=== PATIENT | female | born 1985 | race Hispanic/Latino ===

== ENCOUNTER → 2017-06-26 | Outpatient (REF) | payer OTHER ==
[2017-06-26 16:16] LABS: HEMATOCRIT 39.2 % (36.0-47.0); HEMOGLOBIN 12.9 g/dl (12.0-15.5); MEAN CORPUSCULAR HEMOGLOBIN 28.6 pg (27.0-33.0); MEAN CORPUSCULAR HGB CONC 32.9 g/dl (32.0-36.5); MEAN CORPUSCULAR VOLUME 86.9 fl (80.0-96.0); PLATELET COUNT, AUTOMATED 281 10^3/uL (150-450); RED BLOOD COUNT 4.51 10^6/uL (4.00-5.40); RED CELL DISTRIBUTION WIDTH 12.4 % (11.5-14.5); WHITE BLOOD COUNT 12.1 10^3/uL (4.0-10.0)
[2017-06-26 16:39] LABS: ALBUMIN 3.3 GM/DL (3.2-5.2); ALBUMIN/GLOBULIN RATIO 0.83 (1.00-1.93); ALKALINE PHOSPHATASE 81 U/L (45-117); ALT/SGPT 20 U/L (12-78); ANION GAP 6 MEQ/L (8-16); AST/SGOT 13 U/L (7-37); BILIRUBIN,TOTAL 0.1 MG/DL (0.2-1.0); BLOOD UREA NITROGEN 9 MG/DL (7-18); CALCIUM LEVEL 8.9 MG/DL (8.5-10.1); CARBON DIOXIDE LEVEL 26 MEQ/L (21-32); CHLORIDE LEVEL 108 MEQ/L (98-107); CHOLESTEROL LEVEL 177 MG/DL (<200); CHOLESTEROL RISK RATIO 3.051 (<5); CREATININE FOR GFR 0.75 MG/DL (0.55-1.30); FREE T4 1.32 NG/DL (0.76-1.46); GLOMERULAR FILTRATION RATE > 60.0 (>60); GLUCOSE, FASTING 84 MG/DL (70-100); HDL CHOLESTEROL 58 MG/DL (>40); LDL CHOLESTEROL 83.2 MG/DL (<100); NON-HDL-C 119 MG/DL; POTASSIUM SERUM 4.4 MEQ/L (3.5-5.1); SODIUM LEVEL 140 MEQ/L (136-145); THYROID STIMULATING HORMONE 0.956 uIU/ML (0.358-3.740); TOTAL PROTEIN 7.3 GM/DL (6.4-8.2); TRIGLYCERIDES LEVEL 179 MG/DL (<150)
[2017-06-26 17:44] LABS: ESTIMATED AVERAGE GLUCOSE 114 MG/DL (60-110); HEMOGLOBIN A1c 5.6 %
== END ==
LOC: M SFHCPLAZ 14:01
DX: E03.9 Hypothyroidism, unspecified (principal); K21.9 Gastro-esophageal reflux disease without esophagitis; E28.2 Polycystic ovarian syndrome

== ENCOUNTER 2017-08-30 19:55 | Emergency (ER) | payer OTHER ==
[2017-08-30] MEDS: LABETALOL 100 MG TAB PO (20:29)
[2017-08-30] MEDS ORDERED: IBUPROFEN 600 MG TAB PO (21:00)
== END 2017-08-30 21:34 | disposition home or self-care (01) ==
LOC: M ED 19:55
DX: S96.912A Strain of unspecified muscle and tendon at ankle and foot level, left foot, initial encounter (principal); X50.1XXA Overexertion from prolonged static or awkward postures, initial encounter; Y92.410 Unspecified street and highway as the place of occurrence of the external cause; E11.9 Type 2 diabetes mellitus without complications; E07.9 Disorder of thyroid, unspecified; K21.9 Gastro-esophageal reflux disease without esophagitis; Z79.899 Other long term (current) drug therapy; Z79.84 Long term (current) use of oral hypoglycemic drugs
CPT/HCPCS: 73630

== ENCOUNTER → 2017-09-23 | Outpatient (REF) | payer OTHER ==
[2017-09-23 16:41] LABS: FREE T4 1.56 NG/DL (0.76-1.46); THYROID STIMULATING HORMONE 0.011 uIU/ML (0.358-3.740)
== END ==
LOC: M SFHCPLAZ 13:17
DX: E03.9 Hypothyroidism, unspecified (principal)

== ENCOUNTER → 2017-10-25 | Outpatient (REF) | payer OTHER | LOC: M SFHCLERA 13:36 | DX: J02.9 Acute pharyngitis, unspecified (principal) ==

== ENCOUNTER → 2018-05-10 | Outpatient (REF) | payer OTHER ==
[~2018-05-10] MED LIST: IBUP-1022 PO; LEVO200T4; METF500T13; MICR1TAB18; OMEP20CA3
== END ==
LOC: M SFHCLERA 17:23
PROVIDERS: ATTEND Physician Assistant
DX: N39.0 Urinary tract infection, site not specified (principal)

== ENCOUNTER 2018-05-19 20:08 | Emergency (ER) | payer OTHER ==
[~2018-05-19] VITALS: Ht 175.3 cm; Wt 131.8 kg
[2018-05-19] MEDS ORDERED: LABE200T32 PO (20:20)
[2018-05-19 21:34] VITALS: BP 160/104
== END 2018-05-20 01:21 | disposition left against medical advice (07) ==
LOC: M ED 20:08
DX: Z53.21 Procedure and treatment not carried out due to patient leaving prior to being seen by health care provider (principal)

== ENCOUNTER → 2018-05-27 | Outpatient (REF) | payer OTHER ==
[~2018-05-27] MED LIST changes: +LABE200T32 PO; +NORC1TAB7 PO
== END ==
LOC: M SFHCPLAZ 11:07
PROVIDERS: ATTEND Family Medicine
DX: R10.30 Lower abdominal pain, unspecified (principal)
CPT/HCPCS: 36415; 84443; G0463

== ENCOUNTER 2018-06-13 08:04 | Emergency (ER) | payer OTHER ==
[~2018-06-13] VITALS: Ht 175.3 cm; Wt 130.6 kg
[~2018-06-13 08:04] MED LIST changes: -NORC1TAB7 PO
[2018-06-13] MEDS ORDERED: MORPHINE 4 MG/ML 1ML VIAL/SYRINGE (J2270) IV ONE (08:45)
[2018-06-13] MEDS ORDERED: ONDANSETRON 4MG/2ML VIAL (J2405) IV ONE (08:45)
[2018-06-13] MEDS ORDERED: NS 1,000 ML IV ONE (08:45)
[2018-06-13 09:07] LABS: BASO # 0.1 10^3/uL (0.0-0.2); BASO % 0.3 % (0.0-1.0); EOS # 0.2 10^3/uL (0.0-0.50); EOS % 1.3 % (0.0-3.0); HEMATOCRIT 41.1 % (36.0-47.0); HEMOGLOBIN 13.5 g/dl (12.0-15.5); LYMPH % 13.3 % (24.0-44.0); MEAN CORPUSCULAR HEMOGLOBIN 29.1 pg (27.0-33.0); MEAN CORPUSCULAR HGB CONC 32.8 g/dl (32.0-36.5); MEAN CORPUSCULAR VOLUME 88.6 fl (80.0-96.0); MONO # 0.6 10^3/uL (0.0-0.8); MONO % 3.9 % (0.0-5.0); NEUTROPHILS # 12.1 10^3/uL (1.8-7.7); NEUTROPHILS % 80.8 % (36.0-66.0); PLATELET COUNT, AUTOMATED 296 10^3/uL (150-450); RED BLOOD COUNT 4.64 10^6/uL (4.00-5.40)
[2018-06-13 09:25] LABS: BLOOD UREA NITROGEN 9 MG/DL (7-18); CALCIUM LEVEL 8.5 MG/DL (8.5-10.1); CARBON DIOXIDE LEVEL 26 MEQ/L (21-32); CHLORIDE LEVEL 108 MEQ/L (98-107); CREATININE FOR GFR 0.85 MG/DL (0.55-1.30); GLOMERULAR FILTRATION RATE > 60.0 (>60); GLUCOSE, FASTING 101 MG/DL (70-100); POTASSIUM SERUM 4.1 MEQ/L (3.5-5.1); SODIUM LEVEL 139 MEQ/L (136-145)
[2018-06-13] MEDS ORDERED: NORC1TAB7 PO (11:02)
[2018-06-13 11:15] VITALS: BP 120/71
--- NOTE | 2018-06-13 12:03 | REP ---
PELVIC ULTRASOUND: Real-time sonographic evaluation of the pelvis performed utilizing transabdominal and endovaginal technique. Urinary bladder is essentially collapsed. The uterus measures 9.7 x 4.2 x 4.9 cm. Endometrial thickness is 6 mm. Tiny amount of fluid is seen in the endometrial cavity. Tiny endometrial calcification is also seen. Right ovary measures 2.7 x 1.5 x 2.3 cm. Left ovary measures 3.2 x 2.1 x 3.2 cm. A dominant follicle in the left ovary has a maximum diameter of 1.9 cm. There is no ovarian torsion bilaterally, RI right ovary 0.53 and left ovary 0.60 with duplex Doppler evaluation. There is no other evidence of adnexal mass or free fluid. IMPRESSION: Dominant follicle left ovary 1.9 cm in maximum diameter. No torsion. No free fluid. Electronically Signed by Galen Worley MD 06/13/2018 03:46 P
== END 2018-06-13 11:39 | disposition home or self-care (01) ==
LOC: M ED 08:04
DX: N83.292 Other ovarian cyst, left side (principal); K21.9 Gastro-esophageal reflux disease without esophagitis; E28.2 Polycystic ovarian syndrome; Z72.0 Tobacco use; Z79.899 Other long term (current) drug therapy
CPT/HCPCS: 36415; 76830; 76856; 80048; 81001; 85025; 93976; 96361; 96374; 96375; 99284; J2270; J2405

== ENCOUNTER → 2018-07-10 | Outpatient (REF) | payer OTHER ==
[~2018-07-10] MED LIST changes: +NORC1TAB7 PO
[2018-07-10 21:53] LABS: CHLAMYDIA DNA AMPLIFICATION NEGATIVE (NEGATIVE); GC DNA AMPLIFICATION NEGATIVE (NEGATIVE)
== END ==
LOC: M SFHCLERA 11:01
PROVIDERS: ATTEND Nurse Practitioner Family
DX: R30.0 Dysuria (principal)
CPT/HCPCS: 81002; 81025; 87088; 87186; 87661; G0463

== ENCOUNTER → 2018-07-23 | Outpatient (REF) | payer OTHER ==
[2018-07-23 16:34] LABS: FREE T4 1.27 NG/DL (0.76-1.46); THYROID STIMULATING HORMONE 4.26 uIU/ML (0.358-3.740)
== END ==
LOC: M SFHCPLAZ 13:26
DX: E03.9 Hypothyroidism, unspecified (principal); R63.5 Abnormal weight gain
CPT/HCPCS: 36415; 84439; 84443; G0463

== ENCOUNTER → 2018-08-24 | Outpatient (CLI) | payer OTHER ==
[~2018-08-24] MED LIST changes: +OMEP1CAP73; -OMEP20CA3
== END ==
LOC: M SMT 10:53
PROVIDERS: ATTEND Specialist
DX: I10 Essential (primary) hypertension (principal)

== ENCOUNTER → 2018-10-10 | Outpatient (CLI) | payer OTHER ==
[~2018-10-10] MED LIST changes: -OMEP1CAP73; +OMEP20CA4
--- NOTE | 2018-10-10 17:35 | REP ---
Clinical: Trauma Technique: AP, lateral, bilateral oblique views of the right ankle. Findings: Significant lateral swelling is appreciated with small avulsion fracture fragments of the distal fibular tip. Correlation with mechanism of injury is recommended. No other fracture or dislocation identified. Ankle mortise appears intact. Impression: Lateral swelling with small avulsion fracture of the distal fibular tip. Electronically Signed by Hitesh Page MD 10/10/2018 05:26 P
== END ==
LOC: M LRY 17:10
PROVIDERS: ATTEND Physician Assistant
DX: M25.471 Effusion, right ankle (principal)
CPT/HCPCS: 73610; J1885

== ENCOUNTER → 2018-11-27 | Outpatient (REF) | payer OTHER ==
[2018-11-27 15:53] LABS: HEMOGLOBIN A1c 5.6 %
[2018-11-27 16:07] LABS: BLOOD UREA NITROGEN 10 MG/DL (7-18); CALCIUM LEVEL 9.2 MG/DL (8.5-10.1); CARBON DIOXIDE LEVEL 27 MEQ/L (21-32); CHLORIDE LEVEL 103 MEQ/L (98-107); CHOLESTEROL LEVEL 219 MG/DL (<200); CHOLESTEROL RISK RATIO 3.084 (<5); CREATININE FOR GFR 0.75 MG/DL (0.55-1.30); FREE T4 1.18 NG/DL (0.76-1.46); GLOMERULAR FILTRATION RATE > 60.0 (>60); GLUCOSE, FASTING 88 MG/DL (70-100); HDL CHOLESTEROL 71 MG/DL (>40); LDL CHOLESTEROL 110 MG/DL (<100); NON-HDL-C 148 MG/DL; POTASSIUM SERUM 4.3 MEQ/L (3.5-5.1); SODIUM LEVEL 136 MEQ/L (136-145); TRIGLYCERIDES LEVEL 191 MG/DL (<150)
== END ==
LOC: M SFHCPLAZ 13:56
DX: Z00.00 Encounter for general adult medical examination without abnormal findings (principal); E28.2 Polycystic ovarian syndrome; I10 Essential (primary) hypertension; E03.9 Hypothyroidism, unspecified

== ENCOUNTER → 2019-01-29 | Outpatient (REF) | payer OTHER ==
[~2019-01-29] MED LIST changes: +OMEP-172; -OMEP20CA4
== END ==
LOC: M SFHCPLAZ 13:24
DX: Z32.00 Encounter for pregnancy test, result unknown (principal)
CPT/HCPCS: 36415; 84702; G0463

== ENCOUNTER → 2019-02-25 | Outpatient (CLI) | payer OTHER ==
[~2019-02-25] MED LIST changes: -OMEP-172; +OMEP1CAP73
[2019-02-25 13:25] LABS: BASO # 0.1 10^3/uL (0.0-0.2); BASO % 0.4 % (0.0-1.0); EOS # 0.2 10^3/uL (0.0-0.5); EOS % 1.7 % (0.0-3.0); HEMATOCRIT 37.1 % (36.0-47.0); HEMOGLOBIN 12.4 g/dl (12.0-15.5); LYMPH % 24.3 % (24.0-44.0); MEAN CORPUSCULAR HEMOGLOBIN 29.2 pg (27.0-33.0); MEAN CORPUSCULAR HGB CONC 33.4 g/dl (32.0-36.5); MEAN CORPUSCULAR VOLUME 87.3 fl (80.0-96.0); MONO # 0.7 10^3/uL (0.0-0.8); MONO % 5.5 % (0.0-5.0); NEUTROPHILS # 8.4 10^3/uL (1.5-8.5); NEUTROPHILS % 67.7 % (36.0-66.0); PLATELET COUNT, AUTOMATED 300 10^3/uL (150-450); RED BLOOD COUNT 4.25 10^6/uL (4.00-5.40); WHITE BLOOD COUNT 12.4 10^3/uL (4.0-10.0)
[2019-02-25 13:52] LABS: TOTAL PROTEIN,RANDOM URINE 12.3 MG/DL (0.0-12.0)
[2019-02-25 14:04] LABS: ALBUMIN 3.3 GM/DL (3.2-5.2); ALT/SGPT 17 U/L (12-78); BILIRUBIN,TOTAL 0.3 MG/DL (0.2-1.0); BLOOD UREA NITROGEN 6 MG/DL (7-18); CALCIUM LEVEL 8.9 MG/DL (8.5-10.1); CARBON DIOXIDE LEVEL 25 MEQ/L (21-32); CHLORIDE LEVEL 104 MEQ/L (98-107); CREATININE FOR GFR 0.57 MG/DL (0.55-1.30); GLOMERULAR FILTRATION RATE > 60.0 (>60); GLUCOSE, FASTING 89 MG/DL (70-100); SODIUM LEVEL 136 MEQ/L (136-145); TOTAL PROTEIN 7.2 GM/DL (6.4-8.2)
[2019-02-25 15:09] LABS: CHLAMYDIA DNA AMPLIFICATION NEGATIVE (NEGATIVE); GC DNA AMPLIFICATION NEGATIVE (NEGATIVE)
[2019-02-26 10:25] LABS: RUBELLA IgG QUALITATIVE IMMUNE (IMMUNE)
[2019-02-26 12:30] LABS: HIV 1&2 SCREEN CENTAUR NEGATIVE (NEGATIVE)
== END ==
LOC: M PLALAB 11:46
PROVIDERS: ATTEND Advanced Practice Midwife
DX: O10.011 Pre-existing essential hypertension complicating pregnancy, first trimester (principal)

== ENCOUNTER → 2019-03-03 | Outpatient (CLI) | payer OTHER | LOC: M PLALAB 13:41 | PROVIDERS: ATTEND Advanced Practice Midwife | DX: Z13.79 Encounter for other screening for genetic and chromosomal anomalies (principal) ==

== ENCOUNTER → 2019-05-21 | Outpatient (REF) | payer OTHER | LOC: M PLALAB 10:42 | PROVIDERS: ATTEND Obstetrics & Gynecology | DX: O10.012 Pre-existing essential hypertension complicating pregnancy, second trimester (principal) ==

== ENCOUNTER → 2019-05-24 | Outpatient (CLI) | payer OTHER ==
--- NOTE | 2019-05-25 04:56 | REP ---
Clinical: Anatomical evaluation. Comparison: None . Findings: Examination demonstrates a single live intrauterine in transverse (head to maternal left) presentation. motion is identified by technologist. Placenta is noted anterior and grade zero without evidence for placenta previa or abruption. Amniotic fluid volume is normal. Cervix measures 3.5 cm in length and appears closed. No evidence for nuchal cord. Gestational age by current measurements 22 weeks 5 days with MARILYN 09/22/2019 . FHR equals 147 beats per minute. BPD 5.5 cm 22 week 6 days HC 20.9 cm 23 weeks 0 days AC 18.2 cm 23 weeks 0 days FL 4.0 cm 23 weeks 0 days HL 3.7 cm 23 weeks 1 day HC/AC ratio 1.15 Estimated weight 555 grams ( 56 percentile). Anatomical assessment demonstrates normal structures including cranium, choroid plexus, cavum, cerebellum/posterior fossa, lungs, four-chamber heart/ left ventricular outflow tract, diaphragm, stomach, cord insertion/three-vessel cord, bladder, and extremities. Impression: 1. Single live intrauterine in transverse lie demonstrating appropriate estimated weight. 2. Limited evaluation of the facial features, kidneys, right ventricular outflow tract and spine due to positioning.
== END ==
LOC: M WHC 08:08
PROVIDERS: ATTEND Advanced Practice Midwife
DX: O99.212 Obesity complicating pregnancy, second trimester (principal); E66.9 Obesity, unspecified; Z3A.22 22 weeks gestation of pregnancy

== ENCOUNTER → 2019-06-23 | Outpatient (REF) | payer OTHER ==
[2019-06-23 17:41] LABS: HEMATOCRIT 32.3 % (36.0-47.0); HEMOGLOBIN 10.6 g/dl (12.0-15.5); MEAN CORPUSCULAR HEMOGLOBIN 27.7 pg (27.0-33.0); MEAN CORPUSCULAR HGB CONC 32.8 g/dl (32.0-36.5); MEAN CORPUSCULAR VOLUME 84.6 fl (80.0-96.0); PLATELET COUNT, AUTOMATED 323 10^3/uL (150-450); RED BLOOD COUNT 3.82 10^6/uL (4.00-5.40)
[2019-06-23 17:45] LABS: ALT/SGPT 15 U/L (12-78); BILIRUBIN,TOTAL 0.3 MG/DL (0.2-1.0); CREATININE FOR GFR 0.56 MG/DL (0.55-1.30); GLOMERULAR FILTRATION RATE > 60.0 (>60); LDH LACTATE DEHYDROGENASE 107 U/L (84-246); URIC ACID 2.9 MG/DL (2.6-6.0)
[2019-06-23 17:54] LABS: FREE T4 0.96 NG/DL (0.76-1.46); THYROID STIMULATING HORMONE 4.66 uIU/ML (0.358-3.740)
[2019-06-23 18:01] LABS: CREATININE,RANDOM URINE 72.1 MG/DL; TOTAL PROTEIN,RANDOM URINE 21.2 MG/DL (0.0-12.0)
== END ==
LOC: M PLALAB 14:47
PROVIDERS: ATTEND Obstetrics & Gynecology
DX: O10.012 Pre-existing essential hypertension complicating pregnancy, second trimester (principal)

== ENCOUNTER → 2019-07-02 | Outpatient (CLI) | payer OTHER ==
--- NOTE | 2019-07-02 10:17 | REP ---
OBSTETRIC SONOGRAPHY: HISTORY: Essential hypertension affecting in second trimester. FINDINGS: Scanning through the gravid uterus demonstrates a single living intrauterine gestation in a breech lie. motion is observed and heart rate is recorded at 138 beats per minute. An anterior grade 1 placenta is seen without evidence of previa or abruption. Amniotic fluid is subjectively normal. Closed cervical length measured transabdominally is 3.6 cm. No extrauterine abnormality is observed. There has been appropriate interval growth. The following anatomic structures are again identified and felt to be unremarkable: cranium, face and profile, right ventricular outflow tract view, diaphragm, left-sided stomach, abdominal wall cord insertion, three-vessel cord, kidneys and bladder, spine. In conjunction with the previous study, anatomic survey is felt to be complete. BIOMETRY CHART: BPD 7.0 cm = 28 weeks 1 day Head circumference 27.1 cm = 29 weeks 4 days Abdominal circumference 24.9 cm = 29 weeks 1 day Femur length 5.3 cm = 28 weeks 1 day Humeral length 4.8 cm = 28 weeks 0 days HC/AC ratio normal 1.09 Cephalic index normal 0.71 Estimated weight 1276 grams, 2 pounds 13 ounces, 43rd percentile for 28 weeks 5 days. IMPRESSION: Viable single intrauterine gestation at 28 weeks 2 days by today's composite sonographic criteria. Expected gestational age estimate based on prior sonography is also 28 weeks 2 days. There has been appropriate interval growth. MARILYN by prior sonography, September 22, 2019.
== END ==
LOC: M WHC 08:07
PROVIDERS: ATTEND Obstetrics & Gynecology
DX: O10.013 Pre-existing essential hypertension complicating pregnancy, third trimester (principal); Z3A.28 28 weeks gestation of pregnancy; O32.1XX0 Maternal care for breech presentation, not applicable or unspecified

== ENCOUNTER → 2019-07-26 | Outpatient (CLI) | payer OTHER ==
--- NOTE | 2019-07-26 15:18 | REP ---
Clinical: well-being Comparison: 07/02/2019 . Findings: Examination demonstrates a single live intrauterine in cephalic presentation. motion is identified by technologist. Placenta is noted anterior and grade I without evidence for placenta previa or abruption. Amniotic fluid volume is normal. Cervix measures 3.6 cm in length and appears closed. No evidence for nuchal cord. Gestational age by LMP 32 weeks 1 day with MARILYN 09/19/2019 . Gestational age by current measurements 31 weeks 4 days with MARILYN 09/23/2019 . FHR equals 156 beats per minute. Estimated weight 1862 grams ( 39th percentile). Biophysical profile score: 09/17 Impression: Single live intrauterine in cephalic presentation demonstrating appropriate estimated weight and growth interval. Biophysical profile score normal.
== END ==
LOC: M WHC 14:08
PROVIDERS: ATTEND Obstetrics & Gynecology
DX: O10.913 Unspecified pre-existing hypertension complicating pregnancy, third trimester (principal); Z3A.32 32 weeks gestation of pregnancy

== ENCOUNTER → 2019-08-20 | Outpatient (REF) | payer OTHER ==
[~2019-08-20] MED LIST changes: +CHLO125TA; +HYDR25TAB; +MAPA500T2 PO; +NIFE30TA50; +NORE0.353; +PRENTAB9 PO
== END ==
LOC: M SFHCWAGY 09:54
PROVIDERS: ATTEND Obstetrics & Gynecology
DX: O10.013 Pre-existing essential hypertension complicating pregnancy, third trimester (principal)

== ENCOUNTER 2019-08-29 08:50 | Inpatient (IN) | payer OTHER ==
[~2019-08-29] VITALS: Ht 175.3 cm; Wt 136.3 kg
[2019-08-29] VITALS (12 sets, daily range): BP systolic 93–134; BP diastolic 45–77
[~2019-08-29 08:50] MED LIST changes: -CHLO125TA; -HYDR25TAB; -MAPA500T2 PO; -NIFE30TA50; -NORE0.353; -PRENTAB9 PO
[2019-08-29] MEDS ORDERED: MAPA500T2 PO (09:44)
[2019-08-29] MEDS ORDERED: PRENTAB9 PO (09:44)
[2019-08-29] MEDS ORDERED: LACTATED RINGER'S 1000 ML IV STA (10:03)
[2019-08-29 10:26] LABS: HEMATOCRIT 30.9 % (36.0-47.0); HEMOGLOBIN 9.8 g/dl (12.0-15.5); MEAN CORPUSCULAR HEMOGLOBIN 24.9 pg (27.0-33.0); MEAN CORPUSCULAR HGB CONC 31.7 g/dl (32.0-36.5); MEAN CORPUSCULAR VOLUME 78.4 fl (80.0-96.0); PLATELET COUNT, AUTOMATED 322 10^3/uL (150-450); RED BLOOD COUNT 3.94 10^6/uL (4.00-5.40); WHITE BLOOD COUNT 11.1 10^3/uL (4.0-10.0)
[2019-08-29] MEDS: LR 1,000 ML IV SCH ×2 (10:43→18:01)
[2019-08-29] MEDS: miSOPROStol 50 MCG 1/2 TAB (S0191) SL SCH ×3 (10:43→19:29)
[2019-08-29 10:44] LABS: ALT/SGPT 16 U/L (12-78); BILIRUBIN,TOTAL 0.2 MG/DL (0.2-1.0); CREATININE FOR GFR 0.71 MG/DL (0.55-1.30); GLOMERULAR FILTRATION RATE > 60.0 (>60); LDH LACTATE DEHYDROGENASE 154 U/L (84-246); URIC ACID 4.4 MG/DL (2.6-6.0)
[2019-08-29] MEDS: LABETALOL 200 MG TAB PO SCH (21:42)
[2019-08-30] VITALS (47 sets, daily range): BP systolic 120–147; BP diastolic 53–94
[2019-08-30] MEDS ORDERED: OXYTOCIN DRIP 30 UNITS in IV 1 EA IV SCH ×2 (00:30→16:06)
[2019-08-30] MEDS ORDERED: FENTANYL 2MCG/ML ROPIVACAINE 0.2% IN 0.9% NACL 100ML IVBAG As Ordered ONE (02:05)
[2019-08-30] MEDS: FENTANYL/ROPIVACAINE/NACL BAG 100 ML EPIDURAL SCH ×2 (02:56→13:35)
[2019-08-30] MEDS ORDERED: NALOXONE INJ 0.4MG/1ML VIAL (J2310 PER 1MG) IV PRN (03:30)
[2019-08-30] MEDS ORDERED: EPIDURAL/PCA KEYS XX PRN (03:30)
[2019-08-30] MEDS ORDERED: EPIDURAL COMMENT XX SCH (03:30)
[2019-08-30] MEDS ORDERED: ePHEDrine SULFATE 25 MG/5 ML(5MG/ML) SYRINGE IV PRN (03:30)
[2019-08-30] MEDS ORDERED: ONDANSETRON 4MG/2ML VIAL IV PRN (03:30)
[2019-08-30] MEDS ORDERED: REFRIGERATOR IV KEYS XX PRN (03:30)
[2019-08-30] MEDS ORDERED: diphenhydrAMINE 50MG/ML VIAL (J1200) IV PRN (03:30)
[2019-08-30] MEDS: LEVOTHYROXINE 100MCG TABLET (0.1MG) PO SCH (06:11)
[2019-08-30] MEDS: LABETALOL 200 MG TAB PO SCH ×2 (09:01→20:52)
[2019-08-30] MEDS: LR 1,000 ML IV SCH (09:09)
--- NOTE | 2019-08-30 11:29 | IPNPDOC ---
Obstetrical Progress Note Date of Service Aug 30, 2019 Subjective Patient report she is comfortable with some pressure. Objective Vital Signs Date Time Temp Pulse Resp B/P (MAP) Pulse Ox O2 Delivery O2 Flow Rate FiO2 08/30/19 09:01 82 127/60 08/30/19 07:31 99.3 20 Assessment Heart Rate (FHR): 135 Variability: Moderate Accelerations: Positive Heart Rate Tracing: Category I Tocometer Contractions: Yes Frequency: regular Strength: palpated as moderate Sterile Vaginal Examination Dilation: 5 cm Effacement (%): other (75%) Station: -2 Cervical Consistency: Soft Cervical Position: Anterior Postion/Presentation: Cephalic presentation Assessment and Plan Age: 33 : 3 Term: 2 Pre-term: 0 Abortions: 0 Livin Status: Reassuring Group B Streptococcus: Negative Anticipate: Vaginal Delivery Additional Comments IV Pitocin is at 18 mu/min. AROM to a large amount of clear fluid. FSE and IUPC placed due to difficulty monitoring patient. MAYELA MAURICIO CNM Aug 30, 2019 11:29
--- NOTE | 2019-08-30 13:45 | IPNPDOC ---
Obstetrical Progress Note Date of Service Aug 30, 2019 Subjective Patient feeling pressure. Objective Vital Signs Date Time Temp Pulse Resp B/P (MAP) Pulse Ox O2 Delivery O2 Flow Rate FiO2 08/30/19 13:00 100.0 74 18 130/68 (88) Assessment Heart Rate (FHR): 135 Variability: Moderate Accelerations: None Decelerations: Early, Variable Heart Rate Tracing: Category II Tocometer Contractions: Yes Frequency: regular Sterile Vaginal Examination Dilation: 7 cm Effacement (%): 90% Station: -1 Cervical Consistency: Soft Cervical Position: Anterior Postion/Presentation: Cephalic presentation Assessment and Plan Age: 33 : 3 Term: 2 Pre-term: 0 Abortions: 0 Livin EGA at Admission: 37 Weeks & Days 37.1 weeks Status: Reassuring Group B Streptococcus: Negative Anticipate: Vaginal Delivery Additional Comments IV Pitocin is at 20 mu/min. MAYELA MAURICIO CNM Aug 30, 2019 13:45
[2019-08-30] MEDS ORDERED: METHYLERGONOVINE MALEATE 0.2 MG TAB PO PRN (16:15)
[2019-08-30] MEDS ORDERED: IBUPROFEN 600MG TAB PO PRN (16:15)
[2019-08-30] MEDS ORDERED: DOCUSATE SODIUM 100 MG CAP PO PRN (16:15)
[2019-08-30] MEDS ORDERED: ANUSOL HC CREAM 30GM TOP PRN (16:15)
[2019-08-30] MEDS ORDERED: DIBUCAINE 1% OINTMENT 30GM TOP PRN (16:15)
[2019-08-30] MEDS ORDERED: ACETAMINOPHEN TAB 650MG DOSE (2X325MG) PO PRN (16:15)
--- NOTE | 2019-08-30 16:40 | DNPDOC ---
[facility] Delivery Note Delivery Note DATE OF DELIVERY: 08/30/19 at 1533 PREDELIVERY DIAGNOSIS: 37-1/7 weeks' gestation and labor. POST DELIVERY DIAGNOSIS: Delivered. PROCEDURE: Spontaneous vaginal delivery. ELECTRICAL POWER ENGINEER: Mayela Martinez CNM, BOB ANESTHESIA: epidural. ESTIMATED BLOOD LOSS: 350 mL. FINDINGS: 7 pounds 11 ounces; 3500 grams; female , Score 8/9, nuchal cord times 1 loose; CHTN; AMA. DELIVERY SUMMARY: Patient is a 33-year-old female who is now a who presented to L&D for IOL due to CHTN. She had Cytotec and IV Pitocin for IOL. The patient requested an epidural for pain management. The patient progressed to fully dilated at 1522 and pushed to a living female in the TORRI position with restitution to LOT. A nuchal cord was noted and reduced. The anterior shoulder delivered with ease and the corpus immediately followed. The baby was placed on the maternal abdomen active and crying with stimulation. The cord was clamped x2 after pulsation ceased and cut by the FOB. A 3-vessel cord was noted. The placenta delivered spontaneously and intact at 1539. Uterine hemostasis was achieved via rapid infusion of IV Pitocin and fundal massage. The perineum, cervix, and vagina was inspected and found to be intact. Mom is planning on naming the baby Yolie Orlando. She plans to breastfeed. Both mom and baby are in stable condition. All counts of instruments and sponges are correct. MAYELA MARTINEZ CNM Aug 30, 2019 16:40
[2019-08-30] MEDS: MEASLES,MUMPS,RUBELLA VACCINE INJ (MMR-II) (90707) SC SCH (18:02)
[2019-08-30] MEDS: RHOGAM 300 MCG (1500 IU) INJ (J2790) IM SCH (18:02)
[2019-08-30] MEDS: IBUPROFEN 800 MG TAB PO PRN (20:49)
[2019-08-31] MEDS: ACETAMINOPHEN 500 MG TAB PO PRN ×3 (00:08→21:18)
[2019-08-31] MEDS: IBUPROFEN 800 MG TAB PO PRN ×2 (05:24→14:09)
[2019-08-31] MEDS: LEVOTHYROXINE 100MCG TABLET (0.1MG) PO SCH (05:24)
[2019-08-31 06:00] VITALS: BP 141/84
[2019-08-31] MEDS: PRENATAL VITAMINS CHEWABLE TABLET PO SCH (08:40)
[2019-08-31] MEDS: LABETALOL 200 MG TAB PO SCH ×2 (09:07→21:18)
--- NOTE | 2019-08-31 09:11 | IPNPDOC ---
Progress Note Date of Service: Aug 31, 2019 Day#: 1 Progress Note SUBJECT: Patient is a 33-year-old female who is a who was induced at 37 weeks for CHTN. She had a yesterday to a living female. She denies any preeclamptic symptoms. She has been ambulating, voiding spontaneously without issue and tolerating regular diet. Breast feeding without issue. OBJECTIVE: VITAL SIGNS: Within normal limits, afebrile. Alert and oriented times three. Breath sounds clear to auscultation. Heart rate: Regular rate and rhythm, no murmurs, rubs or gallops. Abdomen: Fundus firm at U. Soft, NTTP. Minimal lochia. ASSESSMENT: Day 1 , CHTN PLAN: 1. Continue supportive nursing care. 2. Continue with labetalol. 3. Repeat labs ordered-preeclamptic labs. 4. Anticipate discharge to home tomorrow. VS, I&O, 24H, Fishbone Vital Signs/I&O Vital Signs Date Time Temp Pulse Resp B/P (MAP) Pulse Ox O2 Delivery O2 Flow Rate FiO2 08/31/19 09:07 69 143/69 08/31/19 06:00 97.3 18 08/30/19 18:07 98 Room Air I&O- Last 24 Hours up to 6 AM 08/31/19 06:00 Intake Total 2720.4 ml Output Total 2850 ml Balance -129.6 ml MAYELA MAURICIO CNM Aug 31, 2019 09:11
[2019-08-31 09:42] LABS: HEMATOCRIT 30.2 % (36.0-47.0); HEMOGLOBIN 9.6 g/dl (12.0-15.5); MEAN CORPUSCULAR HEMOGLOBIN 25.3 pg (27.0-33.0); MEAN CORPUSCULAR HGB CONC 31.8 g/dl (32.0-36.5); MEAN CORPUSCULAR VOLUME 79.5 fl (80.0-96.0); PLATELET COUNT, AUTOMATED 295 10^3/uL (150-450); WHITE BLOOD COUNT 12.9 10^3/uL (4.0-10.0)
[2019-08-31 10:06] LABS: ALT/SGPT 17 U/L (12-78); BILIRUBIN,TOTAL 0.1 MG/DL (0.2-1.0); CREATININE FOR GFR 0.84 MG/DL (0.55-1.30); GLOMERULAR FILTRATION RATE > 60.0 (>60); LDH LACTATE DEHYDROGENASE 154 U/L (84-246); URIC ACID 5.3 MG/DL (2.6-6.0)
[2019-08-31 18:05] VITALS: BP 136/65
[2019-09-01] MEDS: IBUPROFEN 800 MG TAB PO PRN (04:38)
[2019-09-01] MEDS: LEVOTHYROXINE 100MCG TABLET (0.1MG) PO SCH (05:53)
[2019-09-01 06:34] VITALS: BP 142/75
[2019-09-01] MEDS: MEASLES,MUMPS,RUBELLA VACCINE INJ (MMR-II) (90707) SC SCH (07:04)
[2019-09-01] MEDS: RHOGAM 300 MCG (1500 IU) INJ (J2790) IM SCH (07:04)
[2019-09-01 08:15] VITALS: BP 158/84
[2019-09-01 08:41] VITALS: BP 158/84
[2019-09-01] MEDS: PRENATAL VITAMINS CHEWABLE TABLET PO SCH (08:41)
[2019-09-01] MEDS: LABETALOL 200 MG TAB PO SCH (08:41)
== END 2019-09-01 12:15 | disposition home or self-care (01) | DRG 807 ==
LOC: M LDI 08:50 → M OBS 08-30 18:05
PROVIDERS: ADMIT Obstetrics & Gynecology; ATTEND Obstetrics & Gynecology
PROC: 10E0XZZ Delivery of Products of Conception, External Approach (ICD-10-PCS; principal; 2019-08-30)
PROC: 3E033VJ Introduction of Other Hormone into Peripheral Vein, Percutaneous Approach (ICD-10-PCS; 2019-08-30)
PROC: 3E0P7VZ Introduction of Hormone into Female Reproductive, Via Natural or Artificial Opening (ICD-10-PCS; 2019-08-30)
DX: O10.92 Unspecified pre-existing hypertension complicating childbirth (principal); Z37.0 Single live birth; O09.523 Supervision of elderly multigravida, third trimester; Z3A.37 37 weeks gestation of pregnancy; E03.9 Hypothyroidism, unspecified; O99.284 Endocrine, nutritional and metabolic diseases complicating childbirth; E66.9 Obesity, unspecified; O99.214 Obesity complicating childbirth

== ENCOUNTER → 2019-10-28 | Outpatient (CLI) | payer OTHER ==
[~2019-10-28] MED LIST changes: +CHLO125TA; +HYDR25TAB; +MAPA500T2 PO; +NIFE30TA50; +NORE0.353; +PRENTAB9 PO
[2019-10-28 18:21] LABS: FREE T4 1.32 NG/DL (0.76-1.46); THYROID STIMULATING HORMONE 0.504 uIU/ML (0.358-3.740)
== END ==
LOC: M LAB 16:39
PROVIDERS: ATTEND Advanced Practice Midwife
DX: E03.8 Other specified hypothyroidism (principal)

== ENCOUNTER → 2019-11-14 | Outpatient (CLI) | payer OTHER | LOC: M LABSMTC 09:58 | PROVIDERS: ATTEND Anesthesiology | DX: Z01.812 Encounter for preprocedural laboratory examination (principal); Z20.828 Contact with and (suspected) exposure to other viral communicable diseases ==

== ENCOUNTER → 2019-11-16 | Outpatient (CLI) | payer OTHER ==
[2019-11-16 15:33] LABS: BLOOD UREA NITROGEN 13 MG/DL (7-18); CALCIUM LEVEL 9.7 MG/DL (8.5-10.1); CARBON DIOXIDE LEVEL 29 MEQ/L (21-32); CHLORIDE LEVEL 104 MEQ/L (98-107); CREATININE FOR GFR 0.84 MG/DL (0.55-1.30); GLOMERULAR FILTRATION RATE > 60.0 (>60); GLUCOSE, FASTING 101 MG/DL (70-100); POTASSIUM SERUM 3.8 MEQ/L (3.5-5.1); SODIUM LEVEL 138 MEQ/L (136-145)
--- NOTE | 2019-11-18 19:24 | ECGEPIP ---
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
== END ==
LOC: M EKG 14:36 → M LAB 14:36
PROVIDERS: ATTEND Anesthesiology
DX: E03.9 Hypothyroidism, unspecified (principal); R94.31 Abnormal electrocardiogram [ECG] [EKG]; I10 Essential (primary) hypertension

== ENCOUNTER 2019-11-19 14:57 | Day surgery (SDC) | payer OTHER ==
[~2019-11-19] VITALS: Ht 175.3 cm; Wt 124.7 kg
[~2019-11-19 14:57] MED LIST changes: +LR 1,000 ML IV ONE
[2019-11-19 15:39] LABS: HEMOGLOBIN 11.6 g/dl (12.0-15.5); MEAN CORPUSCULAR HEMOGLOBIN 22.4 pg (27.0-33.0); MEAN CORPUSCULAR HGB CONC 29.7 g/dl (32.0-36.5); MEAN CORPUSCULAR VOLUME 75.4 fl (80.0-96.0); PLATELET COUNT, AUTOMATED 308 10^3/uL (150-450); RED BLOOD COUNT 5.17 10^6/uL (4.00-5.40); WHITE BLOOD COUNT 10.3 10^3/uL (4.0-10.0)
[2019-11-19] MEDS ORDERED: KETOROLAC 60MG 2ML VIAL As Ordered ONE (17:06)
[2019-11-19] MEDS ORDERED: MIDAZOLAM INJ 2MG/2ML VIAL (J2250 PER 1MG) As Ordered ONE (17:06)
[2019-11-19] MEDS ORDERED: dexameTHASONE 4 MG/ML 1ML VIAL (J1100 PER 1MG) As Ordered ONE (17:06)
[2019-11-19] MEDS ORDERED: fentaNYL 100 MCG/2 ML INJECTION (J3010) As Ordered ONE ×2 (17:06→19:07)
[2019-11-19] MEDS ORDERED: ROCURONIUM BROMIDE 50 MG/5 ML VIAL As Ordered ONE (17:06)
[2019-11-19] MEDS ORDERED: LIDOCAINE 2% 100MG/5ML SDV (FOR ANES.) As Ordered ONE (17:06)
[2019-11-19] MEDS ORDERED: HYDROmorphone HCL 2 MG/ML 1ML VIAL (J1170) As Ordered ONE (17:06)
[2019-11-19] MEDS ORDERED: ONDANSETRON 4MG/2ML VIAL As Ordered ONE (17:06)
[2019-11-19] MEDS ORDERED: propofoL 200 MG/20 ML VIAL As Ordered ONE (17:07)
[2019-11-19] MEDS ORDERED: BUPIVACAINE HCL 0.25% 10ML VIAL As Ordered ONE (17:45)
--- NOTE | 2019-11-19 17:47 | ROOPDOC ---
[facility] Report Of Operation Report of Operation DATE OF PROCEDURE: 11/19/19 PREPROCEDURE DIAGNOSES: Undesired fertility POSTPROCEDURE DIAGNOSES: same. PROCEDURE: Laparoscopic bilateral salpingectomy. SURGEON: Satish Altamirano MD ANESTHESIA: Gen. endotracheal anesthesia. ESTIMATED BLOOD LOSS: Approximately 10 mL. COMPLICATIONS: None. FINDINGS: Normal pelvis including uterus, fallopian tubes and ovaries. Normal upper abdomen. PROCEDURE NOTE: Patient was taken to the operating room where general endotracheal anesthesia induced. She was prepped draped sterile fashion in the dorsal lithotomy position. A sponge stick was placed in the vagina and uses manipulator. The bladder was emptied with a catheter. A periumbilical incision was made with the scalpel. A Veress needle was placed through this incision while tenting up on the skin of the abdomen.. Intra-abdominal location of the Veress needle was assessed with use of a saline filled syringe. A pneumoperitoneum was created. The Veress needle was removed. A 5 mm trocar using the Visiport was inserted through this incision. A 5 and 8 mm suprapubic port was placed under direct visualization without difficulty. A 5 mm scope with camera used to visualize the abdomen and pelvis. The patient's placed in Trendelenburg position. A grasping instrument was used to elevate each fallopian tube. The fallopian tubes were detached from their broad ligament attachments by using LigaSure. Both fallopian tubes were excised near their origins. Both fallopian tubes removed through the suprapubic ports. All instruments were removed. The pneumoperitoneum was released. The skin was closed with 4-0 Monocryl subcuticular sutures. Sponge, instrument and needle counts are correct. SATISH ALTAMIRANO MD Nov 19, 2019 17:47
[2019-11-19] MEDS ORDERED: ACETAMINOPHEN 1000MG 100ML IV BTL (OFIRMEV) (J0131 PER 10MG) As Ordered ONE (18:29)
[2019-11-19] MEDS ORDERED: SUGAMMADEX SODIUM 500 MG/5 ML VIAL (BRIDION) As Ordered ONE (18:44)
[2019-11-19] MEDS ORDERED: oxyCODONE 5MG TAB As Ordered ONE (19:07)
[2019-11-19] MEDS ORDERED: fentaNYL 100 MCG/2 ML INJECTION (J3010) IV PRN (19:15)
[2019-11-19] MEDS ORDERED: LR 1,000 ML IV SCH (19:15)
[2019-11-19] MEDS ORDERED: oxyCODONE 5MG TAB PO PRN (19:15)
[2019-11-19] MEDS ORDERED: ONDANSETRON 4MG/2ML VIAL IV PRN (19:15)
[2019-11-19] MEDS ORDERED: PERCOCET 5MG/325MG TAB PO PRN (19:15)
[2019-11-19 20:40] VITALS: BP 144/82
== END 2019-11-19 20:40 | disposition home or self-care (01) ==
LOC: M SDC 14:57
PROVIDERS: ATTEND Specialist
DX: Z30.2 Encounter for sterilization (principal); I10 Essential (primary) hypertension; E03.9 Hypothyroidism, unspecified; K21.9 Gastro-esophageal reflux disease without esophagitis; J45.909 Unspecified asthma, uncomplicated; F17.218 Nicotine dependence, cigarettes, with other nicotine-induced disorders; Z79.899 Other long term (current) drug therapy
CPT/HCPCS: 36415; 58661; 81025; 85027; 88302; J0131; J1100; J1170; J1885; J2250; J2405; J3010

== ENCOUNTER → 2019-12-03 | Outpatient (REF) | payer OTHER ==
[~2019-12-03] MED LIST changes: -LR 1,000 ML IV ONE
[2019-12-03 14:02] LABS: FREE T4 1.54 NG/DL (0.76-1.46); THYROID STIMULATING HORMONE 0.86 uIU/ML (0.358-3.740)
== END ==
LOC: M PLALAB 11:35
PROVIDERS: ATTEND Advanced Practice Midwife
DX: E03.9 Hypothyroidism, unspecified (principal)

== ENCOUNTER → 2019-12-31 | Outpatient (REF) | payer OTHER ==
[2019-12-31 11:28] LABS: ALT/SGPT 24 U/L (12-78); BILIRUBIN,TOTAL < 0.1 MG/DL (0.2-1.0); BLOOD UREA NITROGEN 12 MG/DL (7-18); CALCIUM LEVEL 8.7 MG/DL (8.5-10.1); CARBON DIOXIDE LEVEL 28 MEQ/L (21-32); CHLORIDE LEVEL 106 MEQ/L (98-107); CHOLESTEROL LEVEL 222 MG/DL (<200); CREATININE FOR GFR 0.97 MG/DL (0.55-1.30); GLOMERULAR FILTRATION RATE > 60.0 (>60); GLUCOSE, FASTING 91 MG/DL (70-100); HDL CHOLESTEROL 59 MG/DL (>40); POTASSIUM SERUM 4.5 MEQ/L (3.5-5.1); SODIUM LEVEL 137 MEQ/L (136-145); TRIGLYCERIDES LEVEL 145 MG/DL (<150)
[2019-12-31 11:29] LABS: ALBUMIN 3.4 GM/DL (3.2-5.2); CHOLESTEROL RISK RATIO 3.762 (<5); LDL CHOLESTEROL 134 MG/DL (<100); NON-HDL-C 163 MG/DL; TOTAL PROTEIN 7.3 GM/DL (6.4-8.2)
[2019-12-31 11:32] LABS: HEMOGLOBIN A1c 5.7 %
[2019-12-31 11:42] LABS: FREE T4 1.16 NG/DL (0.76-1.46); THYROID STIMULATING HORMONE 6.23 uIU/ML (0.358-3.740)
== END ==
LOC: M PLALAB 08:18
PROVIDERS: ATTEND Advanced Practice Midwife
DX: Z00.00 Encounter for general adult medical examination without abnormal findings (principal); E03.9 Hypothyroidism, unspecified; E28.2 Polycystic ovarian syndrome; I10 Essential (primary) hypertension

== ENCOUNTER → 2020-02-09 | Outpatient (CLI) | payer OTHER ==
[2020-02-09 17:36] LABS: FREE T4 1.23 NG/DL (0.76-1.46); THYROID STIMULATING HORMONE 5.25 uIU/ML (0.358-3.740)
== END ==
LOC: M PLALAB 15:10
PROVIDERS: ATTEND Advanced Practice Midwife
DX: E03.9 Hypothyroidism, unspecified (principal)